=== PATIENT | female | born 1960 | race Caucasian/White ===

== ENCOUNTER 2020-05-28 13:19 | Emergency (ER) | payer OTHER ==
[~2020-05-28] VITALS: Ht 162.6 cm; Wt 66.2 kg
[2020-05-28 13:40] LABS: BASOPHILS % (AUTO) 0.6 % (0.0-2.0); EOSINOPHILS # (AUTO) 0.2 K/uL (0.0-0.7); EOSINOPHILS % (AUTO) 2.5 % (0.0-7.0); HEMATOCRIT 37.9 % (31.2-41.9); HEMOGLOBIN 12.5 g/dL (10.9-14.3); LYMPHOCYTES # (AUTO) 2.7 K/uL (20.0-40.0); LYMPHOCYTES % (AUTO) 43.2 % (20.5-51.5); MEAN CORPUSCULAR HGB CONC 33 g/dL (32.3-35.6); MONOCYTES # (AUTO) 0.4 K/uL (2.0-10.0); MONOCYTES % (AUTO) 5.8 % (0.0-11.0); NEUTROPHILS # (AUTO) 2.9 K/uL (1.8-8.9); NEUTROPHILS % (AUTO) 47.9 % (38.5-71.5); PLATELET COUNT (AUTO) 291 K/uL (179-408); RED BLOOD CELL COUNT(AUTO) 4.31 MIL/uL (3.63-4.92); WHITE BLOOD COUNT (AUTO) 6.2 K/uL (3.8-11.8)
[2020-05-28] MEDS ORDERED: ASPI-605 PO (13:48)
[2020-05-28] MEDS ORDERED: SERT50TA14 (13:48)
[2020-05-28] MEDS ORDERED: LIPITOR (13:48)
[2020-05-28 13:49] LABS: CREATININE 0.9 mg/dL (0.6-1.3); POTASSIUM 4.1 mmol/L (3.5-5.1)
--- NOTE | 2020-05-28 13:51 | NUR ---
PT IS IN ROOM #1B. DR LAINEZ EVALUATED THE PT.
[2020-05-28 13:55] LABS: BILIRUBIN,DIRECT 0.1 mg/dL (0.0-0.2); BILIRUBIN,TOTAL 0.3 mg/dL (0.2-1.0); TOTAL PROTEIN, SERUM 7.2 g/dL (6.4-8.2)
[2020-05-28] MEDS ORDERED: IOHEXOL 350 100 ML INFUS..BTL ONE (14:49)
[2020-05-28] MEDS ORDERED: IV NORMAL SALINE 250 ML IV ONE (14:49)
[2020-05-28] MEDS ORDERED: SWABABLE VALVE TRANSFER SET EA MC ONE (14:49)
[2020-05-28] MEDS ORDERED: NITROGLYCERIN OINT 1 GM PACKET TP ONE ×2 (16:00→16:22)
[2020-05-28] MEDS ORDERED: ASPIRIN 81 MG TAB.CHEW PO ONE (16:00)
[2020-05-28 16:17] VITALS: BP 123/69
[2020-05-28] MEDS ORDERED: ASPIRIN 81 MG TAB.CHEW ONE (16:22)
--- NOTE | 2020-05-28 18:48 | NUR ---
PT IS GOING TO BE TRANSFERED TO [facility]IA [facility]. SERGIO IS [id number]. ADMITTING MD IS DR SANDOVAL. REPORT WAS GIVEN TO [facility] SERVICES DIRECTOR RUSSELL. ([phone]). PT IS RESTING IN THE BOMFORTABLY AT THIS TIME. NO S/S OF ACUTE DISTRESS.
--- NOTE | 2020-05-28 19:13 | NUR ---
REPORT WAS GIVEN TO AMBULANCE RN. PT WAS TRANSFERED TO [facility]IA [facility].
== END 2020-05-28 19:16 | disposition short-term general hospital (02) ==
LOC: ER 13:19
DX: R07.9 Chest pain, unspecified (principal); R00.1 Bradycardia, unspecified; Z79.82 Long term (current) use of aspirin; F41.9 Anxiety disorder, unspecified; Z79.899 Other long term (current) drug therapy
CPT/HCPCS: 36415; 71045; 71275; 80048; 80076; 84484; 85025; 85379; 93005; 99285; Q9967; 70030-TC; A4663; J7030; J7050